=== PATIENT | female | born 1950 | race African-American/Black ===

== ENCOUNTER 2022-12-28 04:02 | Day surgery (SDC) | payer OTHER, BC ==
[2022-12-24 09:02] VITALS: BMI 25.4
[2022-12-28] MEDS ORDERED: MIDAZOLAM HCL 2 MG/2 ML SINGLE DOSE VIAL ONE (08:48)
[2022-12-28] MEDS ORDERED: ONDANSETRON 4 MG/2 ML VIAL ONE (08:48)
[2022-12-28 09:24] VITALS: RESP 20
[2022-12-28] MEDS ORDERED: ACETAMINOPHEN 325 MG TABLET (FP) PO ONE (10:00)
[2022-12-28] MEDS ORDERED: ACETAMINOPHEN 325 MG TABLET (FP) ONE (10:32)
[2022-12-28] MEDS ORDERED: ACETAMINOPHEN 500 MG TABLET (FP) PO ONE (10:35)
[2022-12-28 10:42] VITALS: BP 112/67; PULSE 67; TEMP 97.6
== END 2022-12-28 10:52 | disposition home or self-care (01) ==
LOC: JASU-SURG 04:02
PROVIDERS: ATTEND Urology
PROC: 0TF4XZZ Fragmentation in Left Kidney Pelvis, External Approach (ICD-10-PCS; principal; 2022-12-28 08:30)
DX: N20.0 Calculus of kidney (principal)
CPT/HCPCS: 82962